=== PATIENT | male | born 1985 | race Caucasian/White ===

== ENCOUNTER 2023-04-27 22:53 | Emergency (ER) | payer BC, SELFPAY ==
[2023-04-27 23:04] VITALS: BP 131/86; PULSE 78; RESP 16; TEMP 36.9; O2SAT 97; BMI 42.7
--- NOTE | 2023-04-27 23:07 | ED_ITS ---
HPI - Animal Bite General Time Seen by Provider: 23:07 Date Seen: 04/27/23 Chief Complaint: Animal Bite Stated Complaint: Dog Bite- Time Seen by Provider: 04/27/23 23:05 Source: patient and RN notes reviewed Mode of arrival: ambulatory Limitations: no limitations History of Present Illness HPI narrative: This 37-year-old male is coming in with a laceration below his right eye that will not stop bleeding. This happened tonight, he was bit by his own dog. He was rooming his dog,. Grooming the dog and then went back to grooming a dog, he states the dog was done being groomed. This is his own dog, he states his dog is up-to-date on immunizations including rabies. He was unsure of his tetanus, nursing staff did look it up and he is up-to-date on 10/05/2018. He did clean this wound out, was not going to come in but 1 of the wounds below his eye continued to bleed. Right after the incident, patient irrigated these facial wounds with copious water, did clean them. MD complaint: animal bite Animal: dog Description of animal: household pet Mechanism: bite Location: face Related Data Patient tetanus UTD: Yes Home Medications Medication Instructions Recorded Confirmed bupropion HCl 150 mg 24 hr tablet, 150 mg PO QAM 04/27/23 04/27/23 extended release citalopram 20 mg tablet 20 mg PO DAILY 04/27/23 04/27/23 omeprazole magnesium PO 04/27/23 Previous Rx's Medication Instructions Recorded amoxicillin 875 mg-potassium 1 tab PO BID #14 tabs 04/27/23 clavulanate 125 mg tablet Allergies Allergy/AdvReac Type Severity Reaction Status Date / Time No Known Drug Allergies Allergy Verified 04/27/23 23:06 Review of Systems Narrative: As per HPI. PFSH PFSH Social History Smoking Status: Current every day smoker What tobacco products do you use: cigarettes How often do you have a drink containing alcohol: monthly or less AUDIT-C Alcohol total score: 1 Non-prescribed substance use: marijuana (any form) Exam Const: Vital Signs, click to edit/add: Vital Signs - 24 hr 04/27/23 23:04 Temperature 98.4 F Pulse Rate [Pulse Oximeter] 78 Respiratory Rate 16 Blood Pressure [Ri ght Upper Arm] 131/86 Pulse Oximetry 97 Oxygen Delivery Me thod Room Air Patient is a 37-year-old male ambulatory into the ED of his own accord. He is alert, interactive, no apparent distress. Pupils are equal round reactive sclera clear, no upper eyelid involvement, no orbital involvement. Below his right eyelid more medially there is about a 1.5 cm linear scratch that is already scabbed over, wound edges very much intact. A little more laterally to that is about a 0.7-0.8 cm slightly curvilinear wound that is gaping, mildly oozing. He had another little superficial scratch more laterally. Documenting provider has reviewed patient's vital signs: yes Course Course ED Course: Patient was consented on closure with sutures. We did discuss the increased risk from animal bites for infection, further increased with wound closure. However, this patient has a mildly gaping wound that continues to bleed. He consents to have this wound closed. 1 mL of 1% lidocaine with epinephrine was drawn up, this was used locally for anesthesia. Standard sterile technique was observed, 2 simple interrupted sutures using 6 0 Ethilon were placed with good wound approximation and observation of hemostasis. Patient tolerated procedure well. Vital Signs Vital signs: Initial Vital Signs Temperature 98.4 F 04/27/23 23:04 Temperature Source Temporal Artery Scan 04/27/23 23:04 Pulse Rate 78 04/27/23 23:04 Respiratory Rate 16 04/27/23 23:04 Blood Pressure 131/86 04/27/23 23:04 Blood Pressure Mean 101 04/27/23 23:04 Blood Pressure Position Sitting 04/27/23 23:04 Pulse Oximetry 97 04/27/23 23:04 Oxygen Delivery Method Room Air 04/27/23 23:04 Vital Signs Temperature 98.4 F 04/27/23 23:04 Pulse Rate 78 04/27/23 23:04 Respiratory Rate 16 04/27/23 23:04 Blood Pressure 131/86 04/27/23 23:04 Pulse Oximetry 97 04/27/23 23:04 Oxygen Delivery Method Room Air 04/27/23 23:04 Temperature 98.4 F 04/27/23 23:04 Pulse Rate 78 04/27/23 23:04 Respiratory Rate 16 04/27/23 23:04 Blood Pressure 131/86 04/27/23 23:04 Pulse Oximetry 97 04/27/23 23:04 Oxygen Delivery Method Room Air 04/27/23 23:04 Discharge Plan Discharge Clinical Impression: Dog bite, Facial laceration Patient Disposition: Home, Self-Care Condition: Stable Instructions: Animal Bite (ED), Care For Your Stitches (ED) Additional Instructions: Start antibiotic tomorrow morning and take as prescribed to help prevent infection. Watch wounds closely for infection, seek evaluation if there is any concern. Use bacitracin to these wounds including the one that was sutured, apply 3 to 4 times a day until healed. Need to seek re-evaluation in approximately 5-7 days to assess the wound on your face for suture removal, schedule a clinic appointment for this. Prescriptions: New amoxicillin-pot clavulanate 875-125 mg tablet 1 tab PO BID Qty: 14 0RF No Action citalopram 20 mg tablet 20 mg PO DAILY bupropion HCl 150 mg tablet extended release 24 hr 150 mg PO QAM omeprazole magnesium [Prilosec OTC] PO Follow Up/Referrals: Luis Enrique Max MD [Primary Care Provider] - Stand Alone Forms: [employer] Info Instructions
--- NOTE | 2023-04-27 23:26 | ED.NURSE ---
[place] [employer] at bedside for dog bite.
== END 2023-04-27 23:48 | disposition home or self-care (01) ==
LOC: ED 23:33
PROVIDERS: Emergency Provider Family Medicine; PCP Family Medicine
DX: S01.81XA Laceration without foreign body of other part of head, initial encounter (principal); W54.0XXA Bitten by dog, initial encounter
CPT/HCPCS: 12011; 99282; 99283

== ENCOUNTER 2023-11-06 11:42 | Outpatient (CLI) | payer BC, SELFPAY ==
--- NOTE | 2023-11-06 12:44 | W.ANESCHARGE ---
Anesthesia Charges Start Date/Time Anesthesia Start Date: 11/06/23 Anesthesia Start Time: 12:24 Stop Date/Time Anesthesia Stop Date: 11/06/23 Anesthesia Stop Time: 12:44
--- NOTE | 2023-11-06 12:45 | W.ANESCHARGE ---
Anesthesia Charges Start Date/Time Anesthesia Start Date: 11/06/23 Anesthesia Start Time: 12:24 Stop Date/Time Anesthesia Stop Date: 11/06/23 Anesthesia Stop Time: 12:44
== END 2023-11-06 11:43 | disposition home or self-care (01) ==
LOC: OP CLINIC 11:44
PROVIDERS: PCP Family Medicine; Visit Provider Internal Medicine Gastroenterology
DX: R19.7 Diarrhea, unspecified (principal)
CPT/HCPCS: 00811; 45380; 88305; J2704

== ENCOUNTER 2024-01-18 07:28 | Day surgery (SDC) | payer BC, SELFPAY ==
[2024-01-18 07:54] VITALS: BMI 41.8
[2024-01-18 08:19] VITALS: BP 162/99; PULSE 81; RESP 16; TEMP 36.8; O2SAT 98
[2024-01-18] MEDS: SODIUM CHLORIDE 0.9 % (FLUSH) 10 ML SYRINGE IVF (08:24)
[2024-01-18] MEDS: LACTATED RINGERS 1000 ML 1,000 ML 100 ML IV (08:25)
[2024-01-18] MEDS: CEFAZOLIN 2 GM INJ IVP (10:22)
[2024-01-18] MEDS: BUPIVACAINE 0.25% 30 ML INJECTION (10:27)
--- NOTE | 2024-01-18 10:36 | CRLHL7_ITS ---
For Patients: As a result of the Century Cures Act, medical imaging exams and procedure reports are released immediately into your electronic medical record. You may view this report before your referring provider. If you have questions, please contact your health care provider. Indication: INTRA OP RIGHT CHEILECTOMY EXAM Technique: Two fluoroscopic images of the right foot. Fluoroscopic time 3.6 seconds. IMPRESSION: Fluoroscopic guidance for right foot surgery. Dictated by Ayad Cardenas MD @ 01/18/2024 11:10:58 AM (Electronically Signed)
--- NOTE | 2024-01-18 10:43 | SUR.OPER ---
PATIENT QUESTIONS ANSWERED SATISFACTORILY PREOPERATIVELY.? PATIENT BROUGHT TO OR #4 PER CART.? Patient positioned supine on OR #4 bed.? The perioperative?team supported arms bilaterally on arm boards.? Final approval of positioning by surgeon.?
[2024-01-18 11:15] VITALS: BP 127/79; PULSE 69; RESP 16; TEMP 36.6; O2SAT 95
--- NOTE | 2024-01-18 11:20 | W.PODPROC_ITS ---
Date of Procedure: 01/18/24 Surgeon: Moustapha Dupont DPM Pre-op Diagnosis: Hallux rigidus right Post-op Diagnosis: hallux rigidus right Type of Procedure: cheilectomy 1st MPJ right Indications: patient was seen in clinic for painful great toe joint. Significant arthritic changes are noted with large bony spurring and osteophyte formation. He has elected to have surgical care. I reviewed the procedure, recovery, expectations and potential complications. these include but are not limited to: Poor wound healing, infection, potential need for future surgery, continued pain, deep venous thrombosis, pulmonary embolism, possible . He understands risks written consent was obtained. Site marked. Procedure Description: Patient brought the operating room placed supine position on operating table at that time IV sedation was initiated local anesthetic injected into the right foot. He was prepped and draped in a sterile fashion. Standard time-out protocol was followed. the right foot was exsanguinated the tourniquet inflated. A linear incision was made over the dorsal aspect of the 1st metatarsophalangeal joint Then taken down through skin subcutaneous tissues. Blunt dissection exposed the joint capsule and a linear capsular incision made. Capsular tissue reflected from the proximal phalangeal base and 1st metatarsal head. A large loose osteophyte was noted arising from the Romanian channel base. This was excised with a rongeur. The remainder of the phalangeal base on the dorsal, medial and lateral aspect was removed mottled and all spurring removed. First metatarsal head was inspected and a sagittal saw was used to remove the dorsal bony prominence as well as the medial and lateral prominences. First metatarsal head was then remodeled using rotary bur. On the inferior lateral corner of the 5th metatarsal head and osteochondral lesion was noted. This measured 3 mm. Subchondral bur hole was made through the lesion to facilitate fibrocartilage formation. No other areas of loose cartilage noted. the was thoroughly irrigated normal sterile saline. C-arm images confirmed adequate bony resection. Range of motion is without crepitus or catching. Joint capsule was excised of redundant inflamed tissue and closed with 3-0 Vicryl. Subcutaneous tissues reapproximated 4-0 Monocryl and skin closed with 4-0 Prolene. Sterile dressing was applied. He was transferred from OR to PACU vital signs stable vascular status intact. He will be discharged per same-day surgery protocol. He is given oxycodone for pain. He is weight-bearing as tolerated. Follow-up in 2 days. Anesthesia: MAC and local Hemostasis: ankle Estimated blood loss (mL): 2 Specimens: none sent Disposition: same day
--- NOTE | 2024-01-18 11:20 | W.ANESCHARGE ---
Anesthesia Charges Start Date/Time Anesthesia Start Date: 01/18/24 Anesthesia Start Time: 10:19 Stop Date/Time Anesthesia Stop Date: 01/18/24 Anesthesia Stop Time: 11:19
[2024-01-18 11:30] VITALS: BP 136/87; PULSE 68; RESP 16; O2SAT 95
== END 2024-01-18 12:21 | disposition home or self-care (01) ==
PROVIDERS: PCP Family Medicine; Visit Provider Podiatrist
PROC: (CPT 28740; principal; 2024-01-18 10:45)
DX: M20.21 Hallux rigidus, right foot (principal)
CPT/HCPCS: 28289; 01480; 73620; 76000; A4580; J0665; J0690; J2704; J3490; J7120